=== PATIENT | male | born 1960 | race Caucasian/White ===

== ENCOUNTER 2017-07-21 03:33 | Inpatient (IN) | payer BC ==
[2017-07-21] MEDS ORDERED: NITROGLYCERIN OINT 1 INCH/GM PACKET TOPICAL STA (04:07)
[2017-07-21] MEDS ORDERED: MORPHINE SULFATE 4 MG/0.8 ML SYRINGE (INJ) IV STA (04:07)
[2017-07-21] MEDS ORDERED: SODIUM CHLORIDE 0.9% 1,000 ML IV STA (04:07)
[2017-07-21] MEDS ORDERED: ONDANSETRON 4 MG/2 ML VIAL IVP STA (04:07)
[2017-07-21] MEDS ORDERED: ENALAPRILAT 1.25 MG/ML 1 ML VIAL IVP STA (04:08)
[2017-07-21 04:42] LABS: Basophils % (A) 1 %; Eosinophils # (A) 0.1 k/uL (0-0.7); Eosinophils % (A) 3 %; HCT 37.7 % (39.0-53.0); Lymphocytes # (A) 1.3 k/uL (1.0-4.8); Lymphocytes % (A) 26 %; MCV 82.2 fL (80.0-100.0); Mean Platelet Volume 6.6; Monocytes # (A) 0.5 k/uL (0-1.0); Monocytes % (A) 10 %; Neutrophils % (A) 59 %; Platelet Count 210 k/uL (150-450); RBC 4.58 m/uL (4.30-5.90); RDW 13.3 % (11.5-15.5); WBC 5.1 k/uL (3.8-10.6)
[2017-07-21 04:48] LABS: HGB 13.2 gm/dL (13.0-17.5); MCH 28.7 pg (25.0-35.0)
[2017-07-21 05:16] LABS: Blood Urea Nitrogen 27 mg/dL (9-20); Calcium 9.4 mg/dL (8.4-10.2); Carbon Dioxide 22 mmol/L (22-30); Glucose 116 mg/dL (74-99)
[2017-07-21 05:17] LABS: Albumin 3.9 g/dL (3.5-5.0); Anion Gap 13 mmol/L; Chloride 106 mmol/L (98-107); Sodium 141 mmol/L (137-145); Total Bilirubin 0.3 mg/dL (0.2-1.3); Total Protein 6.3 g/dL (6.3-8.2)
[2017-07-21 05:18] LABS: ALT 27 U/L (21-72); AST 27 U/L (17-59); Alkaline Phosphatase 66 U/L (38-126); Creatine Kinase MB 2.4 ng/mL (0.0-2.4); Magnesium 1.8 mg/dL (1.6-2.3); Troponin I <0.012 ng/mL (0.000-0.034)
[2017-07-21 05:19] LABS: Creatine Kinase 85 U/L (55-170)
--- NOTE | 2017-07-21 05:21 | XR ---
EXAM: XR Chest, 2 Views CLINICAL HISTORY: Hypertension TECHNIQUE: Frontal and lateral views of the chest. COMPARISON: None. FINDINGS: Limitations: Poor inspiratory effort is seen, which limits evaluation. Lungs: Mild bibasilar atelectasis and/or infiltrates. Mild peribronchial cuffing, which may represent mild pulmonary edema versus infectious/inflammatory airways disease. Pleural space: Unremarkable. No pneumothorax. Heart: Unremarkable. No cardiomegaly. Mediastinum: Unremarkable. Bones/joints: Unremarkable. IMPRESSION: 1. Mild bibasilar atelectasis and/or infiltrates. 2. Mild peribronchial cuffing, which may represent mild pulmonary edema versus infectious/inflammatory airways disease.
--- NOTE | 2017-07-21 05:30 | ED ---
General Adult HPI - General Chief complaint: Recheck/Abnormal Lab/Rx Stated complaint: hypertension Time Seen by Provider: 07/21/17 03:51 Source: patient Mode of arrival: ambulatory Limitations: no limitations - History of Present Illness Initial comments: 56 years old gentleman has a history of hypertension he is on now lisinopril and metoprolol, this morning he noticed blood pressure was quite high he was to 215 systolic he also complained about chest pain and the chest pressure he said his return home off-and-on even he has a chest pressure and now he denies any pain with a deep breaths she denies any fever no chills he is not coughing up any phlegm. He denies any headaches no confusion no blurred vision no slurred speech no symptoms of TIA or CVA - Related Data Allergies Allergy/AdvReac Type Severity Reaction Status Date / Time No Known Allergies Allergy Verified 07/21/17 03:41 Review of Systems ROS Statement: Those systems with pertinent positive or pertinent negative responses have been documented in the HPI. ROS Other: All systems not noted in ROS Statement are negative. Past Medical History Past Medical History: Hypertension History of Any Multi-Drug Resistant Organisms: None Reported Past Surgical History: No Surgical Hx Reported Past Psychological History: No Psychological Hx Reported Smoking Status: Current some day smoker Past Alcohol Use History: None Reported Past Drug Use History: None Reported General Exam - General Exam Comments Initial Comments: General: The patient is awake and alert, in no distress, and does not appear acutely ill. Skin: Skin is warm and dry and no rashes or lesions are noted. Eye: Pupils are equal, round and reactive to light, extra-ocular movements are intact; there is normal conjunctiva bilaterally. Ears, nose, mouth and throat: There are moist mucous membranes and no oral lesions. Neck: The neck is supple, there is no tenderness or JVD. Cardiovascular: There is a regular rate and rhythm. No murmur, rub or gallop is appreciated. Respiratory: To auscultation bilateral, no wheezing no rhonchi no distress respiratory parra noticed Gastrointestinal: Soft, non-distended, non-tender abdomen without masses or organomegaly noted. There is no rebound or guarding present. Bowel sounds are unremarkable. Back: There is no tenderness to palpation in the midline. There is no obvious deformity. Musculoskeletal: Normal ROM, no tenderness, There is no pedal edema. There is no calf tenderness or swelling. No cords were appreciated. Neurological: CN II-XII intact, Cranial nerves III through XII are intact. There are no obvious motor or sensory deficits. Coordination appears grossly intact. Speech is normal. Psychiatric: Cooperative, appropriate mood & affect, normal judgment. Limitations: no limitations Course Vital Signs 07/21/17 07/21/17 07/21/17 03:36 03:52 04:58 Temperature 99.3 F Pulse Rate 71 66 60 Respiratory 16 18 18 Rate Blood Pressure 215/100 177/79 146/79 O2 Sat by Pulse 98 99 100 Oximetry Sinus reassessed at 537 at about some chest pressure this point though he is chest x-rays unremarkable his troponin is normal and EKG didn't show any STEMI plantar admitted him Dr. Ton Marcos and now cardiology consult blood pressure is quite nicely a blood pressure down to 1:30 systolic EKG Findings - EKG Comments: EKG Findings:: Him EKG is normal sinus rhythm ventricular medical rate is 61 [place] interval is 168 QRS duration is 116 QT/QTC 392/394 review of this EKG does not reveal any ST elevation or ST depression noticed right bundle branch block Medical Decision Making - Lab Data Result diagrams: 07/21/17 04:15 07/21/17 04:15 Lab Results 07/21/17 07/21/17 07/21/17 Range/Units 04:15 04:15 04:15 WBC 5.1 (3.8-10.6) k/uL RBC 4.58 (4.30-5.90) m/uL Hgb 13.2 (13.0-17.5) gm/dL Hct 37.7 L (39.0-53.0) % MCV 82.2 (80.0-100.0) fL MCH 28.7 (25.0-35.0) pg MCHC 38.0 H (31.0-37.0) g/dL RDW 13.3 (11.5-15.5) % Plt Count 210 (150-450) k/uL Neutrophils % 59 % Lymphocytes % 26 % Monocytes % 10 % Eosinophils % 3 % Basophils % 1 % Neutrophils # 3.0 (1.3-7.7) k/uL Lymphocytes # 1.3 (1.0-4.8) k/uL Monocytes # 0.5 (0-1.0) k/uL Eosinophils # 0.1 (0-0.7) k/uL Basophils # 0.0 (0-0.2) k/uL Sodium 141 (137-145) mmol/L Potassium 4.0 (3.5-5.1) mmol/L Chloride 106 (98-107) mmol/L Carbon Dioxide 22 (22-30) mmol/L Anion Gap 13 mmol/L BUN 27 H (9-20) mg/dL Creatinine 0.80 (0.66-1.25) mg/dL Est GFR (CKD-EPI)AfAm >90 (>60 ml/min/1.73 sqM) Est GFR (CKD-EPI)NonAf >90 (>60 ml/min/1.73 sqM) Glucose 116 H (74-99) mg/dL Calcium 9.4 (8.4-10.2) mg/dL Magnesium 1.8 (1.6-2.3) mg/dL Total Bilirubin 0.3 (0.2-1.3) mg/dL AST 27 (17-59) U/L ALT 27 (21-72) U/L Alkaline Phosphatase 66 (38-126) U/L Total Creatine Kinase 85 (55-170) U/L CK-MB (CK-2) 2.4 (0.0-2.4) ng/mL CK-MB (CK-2) Rel Index 2.8 Troponin I <0.012 (0.000-0.034) ng/mL Total Protein 6.3 (6.3-8.2) g/dL Albumin 3.9 (3.5-5.0) g/dL Critical Care Time Total Critical Care Time: 45 Critical Care Time: Patient came in with the pressure off at 200 [id number] systolic he had a chest pressure patient was evaluated from cardiac standpoint is EKG is unremarkable his troponin is normal but he continued to have a chest pressure his blood pressure has come down he was given some Vasotec IV along with some morphine and nitro considering he is over 50 is being BMI is a 37.3 and blood pressure is quite elevated and he continued to have asked pressure I plan to admit him and now my proceed to heparinize him and will be treated as acute coronary syndrome he cardiology be consulted. Admitted to Dr. Ton Marcos's service and discussed that with the Dr. Ton Marcos he agrees with the Disposition Clinical Impression: Hypertension, Chest pain Disposition: ADMITTED IP TO THIS HOSP Condition: Good Referrals: Arminda Last MD [Primary Care Provider] - 1-2 days
[2017-07-21] MEDS ORDERED: HEPARIN SODIUM,PORCINE 5,000 UNIT/ML 1 ML VIAL IV ONE (05:42)
[2017-07-21] MEDS ORDERED: NITROGLYCERIN OINT 1 INCH/GM PACKET TOPICAL SCH (06:00)
[2017-07-21] MEDS: HEPARIN SOD,PORK IN 0.45% NACL 25,000 UNIT in 0.45% NACL 1 500ML.BAG IV SCH (06:20)
--- NOTE | 2017-07-21 07:32 | HP ---
HISTORY AND PHYSICAL CHIEF COMPLAINT: 56-year-old white male with hypertension. HISTORY OF PRESENT ILLNESS: A 56-year-old white gentleman hypertension, on lisinopril and metoprolol. Blood pressure quite high 250 systolic. He came to the hospital due to significant chest pressure and shortness of breath. He had no confusion or blurry vision, symptoms of a CVA or TIA. ALLERGIES: No known drug allergies. REVIEW OF SYSTEMS: Fourteen point review of systems negative except for mentioned in HPI. PAST MEDICAL HISTORY: Hypertension. SOCIAL HISTORY: Current everyday smoker. No alcohol. No street drugs. PHYSICAL EXAM: Temp 98.3, pulse 71, blood pressure was 215/100 on admission, currently is 146/79. CARDIOVASCULAR: S1, S2. LUNGS: Clear. GI soft. Hematology negative Homans. Psych fair mood and affect. NEUROLOGIC: Alert and oriented x3. Psych fair mood and affect. Vascular: Normal dorsalis pedis posterior radial pulse. Ophthalmologic: Pupils equal, round, react to light and accommodation. Otherwise 14-point review of systems is negative. EKG shows sinus rhythm. EKG did not reveal any ST depression, right bundle branch block. Hemoglobin 13.2, BUN 27, creatinine 0.80. ASSESSMENT AND PLAN: 1. Hypertension acceleration. 2. Atypical chest pressure, rule out myocardial infarction. 3. He has morbid obesity. 4. Admitted with acute coronary syndrome. 5. Cardiology is on consult. 6. Hypertension will be controlled. 7. Aspirin and cholesterol pill. Beta blockers will all be given. MMODL / IJN: [id number] /
[2017-07-21] MEDS: LISINOPRIL 10 MG TAB PO SCH (08:50)
[2017-07-21] MEDS: MORPHINE SULFATE 4 MG/0.8 ML SYRINGE (INJ) IV PRN ×2 (10:41→18:01)
[2017-07-21] MEDS ORDERED: ASPIRIN 325 MG TAB PO SCH (11:20)
[2017-07-21] MEDS ORDERED: METOPROLOL TARTRATE 12.5 MG TAB PO SCH (11:30)
[2017-07-21 11:44] LABS: Creatine Kinase 63 U/L (55-170)
[2017-07-21 11:56] LABS: Troponin I <0.012 ng/mL (0.000-0.034)
[2017-07-21 12:10] LABS: Creatine Kinase MB 2.6 ng/mL (0.0-2.4)
--- NOTE | 2017-07-21 12:43 | CONS ---
CONSULTATION Mr. Trinh is a 56-year-old male with a history of hypertension who presented because he felt his blood pressure was too high. He was feeling edgy. He had some discomfort in the chest, although not exertional in pattern. He checked his blood pressure and it was in the 200s. At home, his blood pressure has been elevated recently. He is not very active physically, but has no exertional chest pain. He has no significant dyspnea on exertion. He has no dizziness or palpitation. No syncope. No clear PND or orthopnea. He had no knowledge of edema. He has symptoms off apnea and snoring that has not been checked for obstructive sleep apnea. He had a stress test at [facility] done as an outpatient about 1 month ago and that was unremarkable according to him. His coronary risk factors are remarkable for hypertension. He is nondiabetic. His lipid profile has been stable according to him. He smokes cigars occasionally. He has no family history of premature coronary artery disease. MEDICATION: At home include Zestril 20 mg twice a day, metoprolol succinate 50 mg twice a day. REVIEW OF SYSTEMS: RESPIRATORY SYSTEM. No recent wheezing. No cough. No history of documented obstructive lung disease. GI SYSTEM: No recent GI bleeding or peptic ulcer disease. SYSTEM: No dysuria or hematuria. NERVOUS SYSTEM: No history of stroke or seizure. PHYSICAL EXAMINATION: A 56-year-old male, alert, oriented, in no apparent distress. Blood pressure 127/60 with a heart rate in the 60s. HEAD: Normocephalic. EYES: Sclerae nonicteric. NECK: Good upstroke. No bruit. No jugular venous distention. LUNGS: Clear to auscultation. HEART: Regular rate and rhythm, S1, S2. No S3, plus S4. No rub. ABDOMEN: Soft, obese, nontender. Positive bowel sounds no megaly. EXTREMITIES: Trace to 1+ edema bilaterally. LAB DATA: Revealed troponin less than 0.012. BUN and creatinine 27 and 0.8, potassium 4.0, hemoglobin is 13.2. EKG revealed a sinus mechanism with normal axis, intraventricular conduction delay, of the right bundle branch block type with borderline QRS. Chest x-ray showed questionable congestion. IMPRESSION: 1. Hypertension, elevated at home under good control now. Reviewing his blood pressure home readings has been elevated. 2. Symptoms of chest pain has some typical feature for ischemic heart disease. Patient has underwent a stress test recently that according to him was unremarkable. 3. Probable obstructive sleep apnea. RECOMMENDATION: I will restart him on a beta juanita in since he was on Toprol-XL, I will continue on the DAVID inhibitor and add hydrochlorothiazide. I will obtain echocardiogram with Doppler. Patient would require a sleep study as an outpatient. I will try to obtain the results of his prior testing including the stress test and depending on that, further recommendation will be made. Thank you for this consult. We will follow with you. MMKALEBL / IJN: [id number] /
--- NOTE | 2017-07-21 15:02 | P.HPIM ---
History of Present Illness H&P Date: 07/21/17 Chief Complaint: Hypertension, pain and chest arms shoulders and neck This is a 56-year-old male patient of Dr. Last with past medical history of hypertension, high triglycerides, gastroesophageal reflux disease. Patient and gives history that for the past year he has had problems with hypertension. Onset in March of pains in his arms shoulders and neck bothering him for a while. He had a Doppler done and blood pressure medications were added. He has been monitoring his blood pressure for the past month and has been up and down. He states the pain is a sharpness and bilateral arms and his upper chest. He has full range of motion to his neck. He denies any shortness of breath and denies any pain with exercise. He denies any back pain area and no headache or blurred vision. He denies any increased stress at home or with work. No nausea vomiting or diarrhea. No tenderness to his chest wall or shoulders. He denies having any history of coronary artery disease, heart failure, irregular heartbeat, stroke diabetes. He states that he woke up at 2 in the morning with a blood pressure of 215/115. He states he may have felt a little dizzy at that time and also had tingling in his feet. He was having increased discomfort in his arms shoulders and chest and he came into [facility] emergency center for evaluation. Initially his blood pressure was 215/100. Chest x-ray showed mild bibasilar atelectasis or infiltrate with mild pulmonary edema. White count was normal, hemoglobin 13.2, electrolytes were within normal limits. Creatinine 0.8. Troponin has been negative. IV Vasotec, Nitro-Bid ointment which improved his blood pressure. Patient is in the ER, awaiting selective care bed. Cardiology is on consult. Echocardiogram and BNP have been ordered. Review of Systems All systems: negative Constitutional: Reports fatigue, Reports weakness, Denies chills, Denies fever Eyes: denies blurred vision, denies pain Ears, nose, mouth and throat: Reports vertigo, Denies headache, Denies sore throat Cardiovascular: Reports chest pain, Denies decreased exercise tolerance, Denies dyspnea on exertion, Denies edema, Denies leg edema, Denies lightheadedness, Denies shortness of breath, Denies syncope Respiratory: Denies cough, Denies cough with sputum, Denies dyspnea, Denies excessive sputum, Denies hemoptysis, Denies home oxygen, Denies wheezing Gastrointestinal: Denies abdominal pain, Denies diarrhea, Denies nausea, Denies vomiting Genitourinary: Denies dysuria Musculoskeletal: Denies myalgias Integumentary: Denies pruritus, Denies rash Neurological: Denies numbness, Denies weakness Psychiatric: Denies anxiety, Denies depression Endocrine: Denies fatigue, Denies weight change Past Medical History Past Medical History: GERD/Reflux, Hypertension Additional Past Medical History / Comment(s): High triglycerides History of Any Multi-Drug Resistant Organisms: None Reported Past Surgical History: No Surgical Hx Reported Additional Past Anesthesia/Blood Transfusion Reaction / Comment(s): Pt has never had anesthesia Smoking Status: Light tobacco smoker Additional Past Alcohol Use History / Comment(s): Patient smokes a cigar occasionally. 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 He lives at home with his . - Past Family History Father Family Medical History: CVA/TIA, Dementia Additional Family Medical History / Comment(s): Father at 87yrs from CVA. Mother Family Medical History: CVA/TIA Additional Family Medical History / Comment(s): Mother had several small strokes and dementia. She at the age of 89yrs. Sister(s) Additional Family Medical History / Comment(s): Patient has one sister that from lung cancer. She was a nonsmoker. Patient is brothers with no major medical problems. Patient has 2 children with no major medical problems. Medications and Allergies Home Medications Medication Instructions Recorded Confirmed Type Lisinopril [Zestril] 20 mg PO BID 07/21/17 07/21/17 History Metoprolol Succinate (ER) [Toprol 50 mg PO DAILY 07/21/17 07/21/17 History Xl] Allergies Allergy/AdvReac Type Severity Reaction Status Date / Time No Known Allergies Allergy Verified 07/21/17 07:58 Physical Exam Vitals: Vital Signs Temp Pulse Pulse Resp BP BP Pulse Ox 07/21/17 14:08 97.8 F 60 16 115/67 98 07/21/17 13:32 98.0 F 53 L 18 138/87 98 07/21/17 11:00 57 L 18 126/72 97 07/21/17 08:50 64 18 111/80 98 07/21/17 08:00 69 18 127/69 99 07/21/17 06:22 56 L 18 121/73 98 07/21/17 05:46 97.9 F 60 18 133/69 97 07/21/17 04:58 60 18 146/79 100 07/21/17 03:52 66 18 177/79 99 07/21/17 03:36 99.3 F 71 16 215/100 98 Intake and Output 07/20/17 07/21/17 07/21/17 22:59 06:59 14:59 Other: Weight 117.934 kg Gen: This is a 56-year-old male patient. He is on this stretcher and ear appears to be comfortable. No respiratory distress is noted. HEENT: Head is atraumatic, normocephalic. Pupils equal, round. Sclerae is anicteric. NECK: Supple. No JVD. No lymphadenopathy. No thyromegaly. LUNGS: Clear to auscultation. No wheezes or rhonchi. No intercostal retractions. HEART: Regular rate and rhythm. No murmur. ABDOMEN: Soft. Bowel sounds are present. No masses. No tenderness. EXTREMITIES: Trace bilateral pedal edema. No calf tenderness. NEUROLOGICAL: Patient is awake, alert and oriented x3. Cranial nerves 2 through 12 are grossly intact. Results CBC & Chem 7: 07/21/17 04:15 07/21/17 04:15 Labs: Abnormal Lab Results - Last 24 Hours (Table) 07/21/17 07/21/17 07/21/17 Range/Units 04:15 04:15 10:58 Hct 37.7 L (39.0-53.0) % MCHC 38.0 H (31.0-37.0) g/dL APTT (22.0-30.0) sec BUN 27 H (9-20) mg/dL Glucose 116 H (74-99) mg/dL CK-MB (CK-2) 2.6 H* (0.0-2.4) ng/mL 07/21/17 Range/Units 12:13 Hct (39.0-53.0) % MCHC (31.0-37.0) g/dL APTT 33.7 H (22.0-30.0) sec BUN (9-20) mg/dL Glucose (74-99) mg/dL CK-MB (CK-2) (0.0-2.4) ng/mL Thrombosis Risk Factor Assmnt - DVT/VTE Prophylaxis DVT/VTE Prophylaxis: Pharmacologic Prophylaxis ordered - Choose All That Apply Any of the Below Risk Factors Present?: Yes Each Factor Represents 1 point: Age 41-60 years, Obesity (BMI >25) Other Risk Factors: No Other congenital or acquired thrombophilia - If yes, enter type in comment: No Thrombosis Risk Factor Assessment Total Risk Factor Score: 2 Thrombosis Risk Factor Assessment Level: Low Risk Assessment and Plan Plan: 1. Uncontrolled hypertension, improved. Continue Lopressor 25 mg twice daily, lisinopril 10 mg daily and cardiology has added in hydrochlorothiazide 25 mg daily 2. Chest pain with bilateral arm and neck involvement. Cardiology consult is appreciated. He had a recent stress test which will be obtained. Patient is on a heparin drip, serial troponins, echocardiogram. Continue aspirin, Lipitor , Lopressor. 3. Possible obstructive sleep apnea. Patient would benefit from outpatient sleep study. 4. Gastroesophageal reflux disease and gastrointestinal prophylaxis. Pepcid. 5. DVT prophylaxis. Patient is on heparin drip. Patient will be admitted to the hospital for a minimum of 2 night stay. Discharge plan: Return home Impression and plan of care have been directed as dictated by the signing physician. May Caldwell nurse practitioner acting as scribe for signing physician.
[2017-07-21] MEDS: HYDROCHLOROTHIAZIDE 25 MG TAB PO SCH (15:39)
[2017-07-21] MEDS: ACETAMINOPHEN TAB 325 MG TAB PO PRN ×2 (15:45→20:01)
[2017-07-21] MEDS: ATORVASTATIN 40 MG TAB PO SCH (20:06)
[2017-07-21] MEDS: METOPROLOL TARTRATE 25 MG TAB PO SCH (20:06)
[2017-07-21] MEDS: HEPARIN SODIUM,PORCINE 5,000 UNIT/ML 1 ML VIAL IV PRN (20:07)
[2017-07-21] MEDS ORDERED: MORPHINE SULFATE 4 MG/0.8 ML SYRINGE (INJ) IVP STA (20:43)
[2017-07-21] MEDS ORDERED: traMADol 50 MG TAB PO PRN (21:43)
[2017-07-22] MEDS ORDERED: traMADol 50 MG TAB PO SCH
[2017-07-22 00:24] LABS: Appearance,Urine Clear (Clear); Bilirubin,Urine Negative (Negative); Blood,Urine Negative (Negative); Color,Urine Light Yellow; Glucose,Urine (UA) Negative (Negative); Ketones,Urine Negative (Negative); Leukocyte Esterase,Urine Negative (Negative); Nitrite,Urine Negative (Negative); Protein,Urine Negative (Negative); Specific Gravity,Urine 1.009 (1.001-1.035); Urobilinogen,Urine <2.0 mg/dL (<2.0)
[2017-07-22 00:39] VITALS: RESP 18
[2017-07-22] MEDS ORDERED: ACETAMINOPHEN TAB 325 MG TAB PO PRN (02:00)
[2017-07-22 02:46] LABS: Anion Gap 11 mmol/L; Blood Urea Nitrogen 18 mg/dL (9-20); Carbon Dioxide 24 mmol/L (22-30); Chloride 104 mmol/L (98-107); Cholesterol 134 mg/dL (<200); Glucose 118 mg/dL (74-99); Sodium 139 mmol/L (137-145); Triglycerides 234 mg/dL (<150)
[2017-07-22 02:58] LABS: Calcium 9.1 mg/dL (8.4-10.2); HDL Cholesterol 35 mg/dL (40-60); LDL Cholesterol,Calculated 52 mg/dL (0-99); Potassium 3.8 mmol/L (3.5-5.1)
[2017-07-22] MEDS: HEPARIN SODIUM,PORCINE 5,000 UNIT/ML 1 ML VIAL IV PRN (03:51)
[2017-07-22] MEDS: HEPARIN SOD,PORK IN 0.45% NACL 25,000 UNIT in 0.45% NACL 1 500ML.BAG IV SCH (05:42)
[2017-07-22] MEDS: ASPIRIN 81 MG PO SCH (07:58)
[2017-07-22] MEDS: LISINOPRIL 10 MG TAB PO SCH (07:58)
[2017-07-22] MEDS: FAMOTIDINE 20 MG TAB PO SCH (07:58)
[2017-07-22] MEDS: HYDROCHLOROTHIAZIDE 25 MG TAB PO SCH (07:58)
[2017-07-22] MEDS: METOPROLOL TARTRATE 25 MG TAB PO SCH ×2 (07:58→20:43)
--- NOTE | 2017-07-22 08:53 | ECHOF ---
Referral Reason:lvf MEASUREMENTS -------- HEIGHT: 180.3 cm WEIGHT: 117.9 kg BP: 111/80 IVSd: 1.2 cm (0.6 - 1.1) LVIDd: 4.3 cm (3.9 - 5.3) LVPWd: 1.2 cm (0.6 - 1.1) IVSs: 1.2 cm LVIDs: 2.7 cm LVPWs: 1.7 cm Ao Diam: 3.4 cm (2.0 - 3.7) AV Cusp: 2.3 cm (1.5 - 2.6) LA Diam: 2.6 cm (2.7 - 3.8) MV EXCURSION: 14.924 mm (> 18.000) MV EF SLOPE: 104 mm/s (70 - 150) EPSS: 0.4 cm MV E Michael: 0.81 m/s MV DecT: 221 ms MV A Michael: 0.57 m/s MV E/A Ratio: 1.43 RAP: 5.00 mmHg RVSP: 11.86 mmHg FINDINGS -------- Sinus rhythm. This was a technically difficult study with suboptimal views. The left ventricular size is normal. There is mild concentric left ventricular hypertrophy. Overa ll left ventricular systolic function is normal with, an EF between 55 - 60 %. The right ventricle is normal in size and function. The left atrium is normal in size. The right atrium is normal in size. Lumason used The aortic valve is trileaflet, and appears structurally normal. No aortic stenosis or regurgitation. There is trace mitral regurgitation. Trace tricuspid regurgitation present. The right ventricular systolic pressure, as measured by Dopp ler, is 11.86mmHg. Pulmonic valve appears structurally normal. The aortic root size is normal. Normal inferior vena cava with normal inspiratory collapse consistent with estimated right atrial pre ssure of 5 mmHg. The pericardium is normal. CONCLUSIONS -------- 1. Sinus rhythm. 2. This was a technically difficult study with suboptimal views. 3. The left ventricular size is normal. 4. There is mild concentric left ventricular hypertrophy. 5. Overall left ventricular systolic function is normal with, an EF between 55 - 60 %. 6. The right ventricle is normal in size and function. 7. The left atrium is normal in size. 8. The right atrium is normal in size. 9. Lumason used 10. The aortic valve is trileaflet, and appears structurally normal. No aortic stenosis or regurgitat ion. 11. There is trace mitral regurgitation. 12. Trace tricuspid regurgitation present. 13. The right ventricular systolic pressure, as measured by Doppler, is 11.86mmHg. 14. Pulmonic valve appears structurally normal. 15. The aortic root size is normal. 16. Normal inferior vena cava with normal inspiratory collapse consistent with estimated right atrial pressure of 5 mmHg. 17. The pericardium is normal. [employer] CASER: Trisha Hess RDCS
[2017-07-22] MEDS ORDERED: ASPIRIN 325 MG TAB PO SCH (09:00)
--- NOTE | 2017-07-22 11:14 | P.PN ---
Subjective Progress Note Date: 07/22/17 This is a 56-year-old male patient of Dr. Last with past medical history of hypertension, high triglycerides, gastroesophageal reflux disease. Patient and gives history that for the past year he has had problems with hypertension. Onset in March of pains in his arms shoulders and neck bothering him for a while. He had a Doppler done and blood pressure medications were added. He has been monitoring his blood pressure for the past month and has been up and down. He states the pain is a sharpness and bilateral arms and his upper chest. He has full range of motion to his neck. He denies any shortness of breath and denies any pain with exercise. He denies any back pain area and no headache or blurred vision. He denies any increased stress at home or with work. No nausea vomiting or diarrhea. No tenderness to his chest wall or shoulders. He denies having any history of coronary artery disease, heart failure, irregular heartbeat, stroke diabetes. He states that he woke up at 2 in the morning with a blood pressure of 215/115. He states he may have felt a little dizzy at that time and also had tingling in his feet. He was having increased discomfort in his arms shoulders and chest and he came into [facility] emergency center for evaluation. Initially his blood pressure was 215/100. Chest x-ray showed mild bibasilar atelectasis or infiltrate with mild pulmonary edema. White count was normal, hemoglobin 13.2, electrolytes were within normal limits. Creatinine 0.8. Troponin has been negative. IV Vasotec, Nitro-Bid ointment which improved his blood pressure. 07/22: Patient is feeling better today he denies any chest pain, he denies any more neck pain or shoulder pain he stated that the pain got better after the nitroglycerin was removed, his blood pressure is better today, we will discontinue heparin drip, we will keep the patient the hospital for another 24 hours if the blood pressure is well controlled he can be discharged home tomorrow morning. Objective - Vital Signs Vital signs: Vital Signs Temp 98.9 F 07/22/17 04:00 Pulse 76 07/22/17 04:00 Resp 18 07/22/17 04:00 BP 119/61 07/22/17 04:00 Pulse Ox 95 07/22/17 04:00 Intake & Output 07/21/17 07/22/17 07/22/17 18:59 06:59 18:59 Intake Total 240 500.000 Output Total 300 Balance 240 200.000 Weight 117.7 kg Intake: Intake, IV Titration 500.000 Amount Heparin Sod,Pork in 0.45% 500.000 NaCl 25,000 unit In 0.45 % NaCl 1 500ml.bag @ 8.4 UNITS/KG/HR 19.81 mls/hr IV .Q24H RACHEAL Rx#: [id number] Oral 240 Output: Urine 300 Other: # Voids 1 - Constitutional General appearance: Present: mild distress, obese - EENT Eyes: Present: anicteric sclerae, EOMI, PERRLA, normal appearance. Absent: ptosis, scleral icterus ENT: Present: hearing grossly normal, NA/AT, normal oropharynx Ears: bilateral: normal - Neck Neck: Present: normal ROM. Absent: lymphadenopathy, rigidity, stridor, thyromegaly Carotids: bilateral: upstroke normal Thyroid: bilateral: normal size - Respiratory Respiratory: bilateral: diminished, negative: dullness, rales, rhonchi, wheezing , prolonged expiration - Cardiovascular Rhythm: regular Heart sounds: normal: S1, S2 Abnormal Heart Sounds: Present: systolic murmur - Gastrointestinal General gastrointestinal: Present: normal bowel sounds, soft. Absent: splenomegaly, tenderness, umbilical hernia - Integumentary Integumentary: Present: normal, normal turgor - Neurologic Neurologic: Present: CNII-XII intact - Musculoskeletal Musculoskeletal: Present: strength equal bilaterally - Psychiatric Psychiatric: Present: A&O x's 3, appropriate affect, intact judgment & insight - Labs CBC & Chem 7: 07/21/17 04:15 07/22/17 02:25 Labs: Abnormal Lab Results - Last 24 Hours (Table) 07/21/17 07/21/17 07/22/17 Range/Units 10:58 12:13 02:25 APTT 33.7 H (22.0-30.0) sec Glucose 118 H (74-99) mg/dL CK-MB (CK-2) 2.6 H* (0.0-2.4) ng/mL Triglycerides 234 H (<150) mg/dL HDL Cholesterol 35 L (40-60) mg/dL 07/22/17 Range/Units 02:25 APTT 45.2 H (22.0-30.0) sec Glucose (74-99) mg/dL CK-MB (CK-2) (0.0-2.4) ng/mL Triglycerides (<150) mg/dL HDL Cholesterol (40-60) mg/dL Assessment and Plan Assessment: Assessment and Plan Plan: 1. Uncontrolled hypertension, improved. Continue Lopressor 25 mg twice daily, lisinopril 10 mg daily and cardiology has added in hydrochlorothiazide 25 mg daily 2. Chest pain with bilateral arm and neck involvement. Noncardiac in origin, patient will need to go for a cervical spine x-ray as an outpatient, he will need to go for a sleep study as an outpatient as well. 3. Possible obstructive sleep apnea. Patient would benefit from outpatient sleep study. 4. Gastroesophageal reflux disease and gastrointestinal prophylaxis. Pepcid. 5. DVT prophylaxis. Patient is on heparin drip. 6. Patient can be discharged home in the next 24 hours if okay with cardiology.
[2017-07-22] MEDS: amLODIPine 5 MG TAB PO SCH (14:19)
--- NOTE | 2017-07-22 20:27 | PN ---
PROGRESS NOTE This patient was admitted with uncontrolled hypertension. He is feeling well. He denies any headaches or dizziness or lightheadedness. Blood pressure is 163/84 mmHg. The patient is afebrile. First and second heart sounds are normal. Lungs are clinically clear to auscultation and percussion. Patient's troponins are negative. The patient can be discharged home Amlodipine 5 mg daily. He in addition to the lisinopril. MMODL / IJN: [id number] /
[2017-07-22] MEDS: ATORVASTATIN 40 MG TAB PO SCH (20:43)
[2017-07-23 05:48] LABS: Basophils % (A) 0 %; Eosinophils # (A) 0.2 k/uL (0-0.7); Eosinophils % (A) 3 %; HCT 40.8 % (39.0-53.0); Lymphocytes # (A) 1.8 k/uL (1.0-4.8); Lymphocytes % (A) 26 %; MCH 28.7 pg (25.0-35.0); MCHC 34.3 g/dL (31.0-37.0); MCV 83.6 fL (80.0-100.0); Mean Platelet Volume 6.4; Monocytes # (A) 0.6 k/uL (0-1.0); Monocytes % (A) 9 %; Neutrophils % (A) 59 %; Platelet Count 207 k/uL (150-450); RBC 4.89 m/uL (4.30-5.90); RDW 13.2 % (11.5-15.5); WBC 6.8 k/uL (3.8-10.6)
[2017-07-23 05:59] LABS: ALT 27 U/L (21-72); AST 23 U/L (17-59); Alkaline Phosphatase 61 U/L (38-126); Anion Gap 14 mmol/L; Blood Urea Nitrogen 18 mg/dL (9-20); Calcium 9.4 mg/dL (8.4-10.2); Carbon Dioxide 27 mmol/L (22-30); Chloride 102 mmol/L (98-107); Glucose 99 mg/dL (74-99); Potassium 3.9 mmol/L (3.5-5.1); Sodium 143 mmol/L (137-145); Total Bilirubin 0.8 mg/dL (0.2-1.3); Total Protein 6.5 g/dL (6.3-8.2)
[2017-07-23] MEDS: FAMOTIDINE 20 MG TAB PO SCH (08:35)
[2017-07-23] MEDS: ASPIRIN 81 MG PO SCH (08:35)
[2017-07-23] MEDS: amLODIPine 5 MG TAB PO SCH (08:35)
[2017-07-23] MEDS: METOPROLOL TARTRATE 25 MG TAB PO SCH (08:36)
[2017-07-23] MEDS: LISINOPRIL 10 MG TAB PO SCH (08:36)
[2017-07-23] MEDS: HYDROCHLOROTHIAZIDE 25 MG TAB PO SCH (08:36)
--- NOTE | 2017-07-23 09:31 | P.DS ---
Providers Date of admission: 07/21/17 05:41 Attending physician: Darwin Caicedo MD Consults: 07/21/17 05:42 Consult Physician Urgent Consulting Provider: Yvrose Houston Consult Reason/Comments: Chest pain, hypertension, mild pulmonary edema Do you want consulting provider notified?: Yes Primary care physician: Arminda Last [place] Hospital Course: This is a 56-year-old male patient of Dr. Last with past medical history of hypertension, high triglycerides, gastroesophageal reflux disease. Patient and gives history that for the past year he has had problems with hypertension. Onset in March of pains in his arms shoulders and neck bothering him for a while. He had a Doppler done and blood pressure medications were added. He has been monitoring his blood pressure for the past month and has been up and down. He states the pain is a sharpness and bilateral arms and his upper chest. He has full range of motion to his neck. He denies any shortness of breath and denies any pain with exercise. He denies any back pain area and no headache or blurred vision. He denies any increased stress at home or with work. No nausea vomiting or diarrhea. No tenderness to his chest wall or shoulders. He denies having any history of coronary artery disease, heart failure, irregular heartbeat, stroke diabetes. He states that he woke up at 2 in the morning with a blood pressure of 215/115. He states he may have felt a little dizzy at that time and also had tingling in his feet. He was having increased discomfort in his arms shoulders and chest and he came into [facility] emergency center for evaluation. Initially his blood pressure was 215/100. Chest x-ray showed mild bibasilar atelectasis or infiltrate with mild pulmonary edema. White count was normal, hemoglobin 13.2, electrolytes were within normal limits. Creatinine 0.8. Troponin has been negative. IV Vasotec, Nitro-Bid ointment which improved his blood pressure. 07/22: Patient is feeling better today he denies any chest pain, he denies any more neck pain or shoulder pain he stated that the pain got better after the nitroglycerin was removed, his blood pressure is better today, we will discontinue heparin drip, we will keep the patient the hospital for another 24 hours if the blood pressure is well controlled he can be discharged home tomorrow morning. Discharge diagnoses: 1. Uncontrolled hypertension, improved. 2. Chest pain with bilateral arm and neck involvement. Noncardiac in origin, 3. Possible obstructive sleep apnea. Patient would benefit from outpatient sleep study. Patient Condition at Discharge: Good Plan - Discharge Summary Discharge Rx Participant: No New Discharge Prescriptions: New amLODIPine [Norvasc] 5 mg PO DAILY #30 tab Aspirin 81 mg PO DAILY chew Atorvastatin [Lipitor] 40 mg PO HS #30 tab Hydrochlorothiazide [Hydrodiuril] 25 mg PO DAILY #30 tab Lisinopril [Zestril] 10 mg PO DAILY #30 tab Metoprolol Tartrate [Lopressor] 25 mg PO BID #60 tab Discontinued Metoprolol Succinate (ER) [Toprol Xl] 50 mg PO DAILY Lisinopril [Zestril] 20 mg PO BID Discharge Medication List Aspirin 81 mg PO DAILY chew 07/23/17 [Rx] Atorvastatin [Lipitor] 40 mg PO HS #30 tab 07/23/17 [Rx] Hydrochlorothiazide [Hydrodiuril] 25 mg PO DAILY #30 tab 07/23/17 [Rx] Lisinopril [Zestril] 10 mg PO DAILY #30 tab 07/23/17 [Rx] Metoprolol Tartrate [Lopressor] 25 mg PO BID #60 tab 07/23/17 [Rx] amLODIPine [Norvasc] 5 mg PO DAILY #30 tab 07/23/17 [Rx] Follow up Appointment(s)/Referral(s): Arminda Last MD [Primary Care Provider] - 1-2 days (offices closed, please call to make follow up appointment) Patient Instructions/Handouts: Chest Pain (DC), Hypertension (DC) Discharge Disposition: HOME SELF-CARE
[2017-07-23 10:35] VITALS: BP 129/65; PULSE 71; TEMP 98.6
== END 2017-07-23 10:52 | disposition home or self-care (01) | DRG 305 ==
LOC: EC 03:33 → 6SEL 05:41
PROVIDERS: ADMIT Internal Medicine; ATTEND Internal Medicine
DX: I10 Essential (primary) hypertension (principal); I24.9 Acute ischemic heart disease, unspecified; E66.01 Morbid (severe) obesity due to excess calories; I45.10 Unspecified right bundle-branch block; K21.9 Gastro-esophageal reflux disease without esophagitis; E78.1 Pure hyperglyceridemia; G47.33 Obstructive sleep apnea (adult) (pediatric); R01.1 Cardiac murmur, unspecified; F17.290 Nicotine dependence, other tobacco product, uncomplicated; Z82.3 Family history of stroke; Z81.8 Family history of other mental and behavioral disorders; Z79.82 Long term (current) use of aspirin; Z79.899 Other long term (current) drug therapy; Z80.1 Family history of malignant neoplasm of trachea, bronchus and lung; Z68.35 Body mass index [BMI] 35.0-35.9, adult
CPT/HCPCS: 36415; 71046; 80048; 80053; 80061; 81003; 82550; 82553; 83735; 83880; 84484; 85025; 85379; 85730; 93005; 93306; 94760; 96361; 96365; 96366; 96375; 96376; 99285

== ENCOUNTER 2022-04-15 15:59 | Emergency (ER) | payer BC ==
[2022-04-15 16:04] VITALS: TEMP 97.9
--- NOTE | 2022-04-15 16:45 | ED ---
General Adult HPI - General Chief complaint: Recheck/Abnormal Lab/Rx Stated complaint: Hypertension Time Seen by Provider: 04/15/22 16:12 Source: patient, RN notes reviewed Mode of arrival: ambulatory Limitations: no limitations - History of Present Illness Initial comments: 61-year-old male with past medical history of new onset hypertension a nd Gracia's palsy presents to the emergency department with a chief complaint of blood pressure check. He was seen at [facility] 04/07 for rash around eye and bells palsy and new onset HTN. He was Seen by PCP on 04/13 for ER follow up for HTN and was started on lisinoprill, metoprolol, and catapress. He took Lisinopril this morning around 11:00am and reports blood pressure being 200/110's. He reports he took additional lisinopril and catapress at around 15:00. He was concerned because his blood pressure has "not gone down." He denies headache, vision changes, vision loss, numbness, tingling, chest pain, palpitations, shortness of breath, nausea, vomiting, abdominal pain. - Related Data Previous Rx's Medication Instructions Recorded Aspirin 81 mg PO DAILY chew 07/23/17 Atorvastatin [Lipitor] 40 mg PO HS #30 tab 07/23/17 Metoprolol Tartrate [Lopressor] 25 mg PO BID #60 tab 07/23/17 amLODIPine [Norvasc] 5 mg PO DAILY #30 tab 07/23/17 hydroCHLOROthiazide [Hydrodiuril] 25 mg PO DAILY #30 tab 07/23/17 lisinopriL [Zestril] 10 mg PO DAILY #30 tab 07/23/17 lisinopriL [Zestril] 40 mg PO DAILY 30 Days #30 tablet 04/15/22 Allergies Allergy/AdvReac Type Severity Reaction Status Date / Time No Known Allergies Allergy Verified 04/15/22 16:04 Review of Systems ROS Statement: Those systems with pertinent positive or pertinent negative responses have been documented in the HPI. ROS Other: All systems not noted in ROS Statement are negative. Past Medical History Past Medical History: GERD/Reflux, Hypertension Additional Past Medical History / Comment(s): High triglycerides History of Any Multi-Drug Resistant Organisms: None Reported Past Surgical History: No Surgical Hx Reported Additional Past Anesthesia/Blood Transfusion Reaction / Comment(s): Pt has never had anesthesia Past Psychological History: No Psychological Hx Reported Smoking Status: Current every day smoker Past Alcohol Use History: Occasional Past Drug Use History: None Reported - Past Family History Father Family Medical History: CVA/TIA, Dementia Additional Family Medical History / Comment(s): Father at 87yrs from CVA. Mother Family Medical History: CVA/TIA Additional Family Medical History / Comment(s): Mother had several small strokes and dementia. She at the age of 89yrs. Sister(s) Additional Family Medical History / Comment(s): Patient has one sister that from lung cancer. She was a nonsmoker. Patient is brothers with no major medical problems. Patient has 2 children with no major medical problems. General Exam Limitations: no limitations General appearance: alert, in no apparent distress Head exam: Present: atraumatic, normocephalic, normal inspection Eye exam: Present: normal appearance, PERRL, EOMI. Absent: scleral icterus, conjunctival injection, periorbital swelling ENT exam: Present: normal exam, mucous membranes moist Neck exam: Present: normal inspection. Absent: tenderness, meningismus, lymphadenopathy Respiratory exam: Present: normal lung sounds bilaterally. Absent: respiratory distress, wheezes, rales, rhonchi, stridor Cardiovascular Exam: Present: regular rate, normal rhythm, normal heart sounds. Absent: systolic murmur, diastolic murmur, rubs, gallop, clicks GI/Abdominal exam: Present: soft, normal bowel sounds. Absent: distended, tenderness, guarding, rebound, rigid Extremities exam: Present: normal inspection, full ROM, normal capillary refill. Absent: tenderness, pedal edema, joint swelling, calf tenderness Back exam: Present: normal inspection Neurological exam: Present: alert, oriented X3, CN II-XII intact Psychiatric exam: Present: normal affect, normal mood Skin exam: Present: warm, dry, intact, normal color. Absent: rash Course Vital Signs 04/15/22 16:00 Temperature 97.9 F Pulse Rate 66 Respiratory 20 Rate Blood Pressure 205/118 O2 Sat by Pulse 97 Oximetry - Reevaluation(s) Reevaluation #1: 04/15/22 16:[address] Levy who recommends patient start 40mg Lisino pril daily, and to take catapress if blood pressure is > 140/90.. She advised to have the patient follow up with her office on monday04/18/22 Reevaluation #2: 04/15/22 16:45 RN notified promotion writer blood pressure 151/85 Medical Decision Making - Medical Decision Making Was pt. sent in by a medical professional or institution (, HARISH, MILKING MACHINE OPERATOR, urgent care, hospital, or jail...) When possible be specific @ -[No] Did you speak to anyone other than the patient for history (EMS, parent, family, police, friend...)? What history was obtained from this source @ -[No] Did you review nursing and triage notes (agree or disagree)? Why? @ -[I reviewed and agree with nursing and triage notes] Were old charts reviewed (outside hosp., previous admission, EMS record, old EKG, old radiological studies, urgent care reports/EKG's, jail records)? Report findings @ -[No old charts were reviewed] Differential Diagnosis (chest pain, altered mental status, abdominal pain women, abdominal pain men, vaginal bleeding, weakness, fever, dyspnea, syncope, headache, dizziness, GI bleed, back pain, seizure, CVA, palpatations, mental health)? @ -[not applicable] EKG interpreted by me (3pts min.). @ -[As above] X-rays interpreted by me (1pt min.). @ -[None done] CT interpreted by me (1pt min.). @ -[None done] U/S interpreted by me (1pt. min.). @ -[None done] What testing was considered but not performed or refused? (CT, X-rays, U/S, labs)? Why? @ -[None] What meds were considered but not given or refused? Why? @ -[None] Did you discuss the management of the patient with other professionals (professionals i.e. HARISH Russell, MILKING MACHINE OPERATOR, lab, RT, psych nurse, social services technician, state farm agent team member, teacher, probation officer, pillowcase maker)? Give summary @ -[No] Was smoking cessation discussed for >3mins.? @ -[No] Was critical care preformed (if so, how long)? @ -[No] Were there social determinants of health that impacted care today? How? (Homelessness, low income, unemployed, alcoholism, drug addiction, transportation, low edu. Level, literacy, decrease access to med. care, retirement, rehab)? @ -[No] Was there de-escalation of care discussed even if they declined (Discuss DNR or withdrawal of care, Hospice)? DNR status @ -[No] What co-morbidities impacted this encounter? (DM, HTN, Smoking, COPD, CAD, Cancer, CVA, ARF, Chemo, Hep., AIDS, mental health diagnosis, sleep apnea, morbid obesity)? @ -[None] Was patient admitted / discharged? Hospital course, mention meds given and route, prescriptions, significant lab abnormalities, going to OR and other pertinent info. @ -61-year-old male presents to the emergency department with hypertension. He should had a history and physical performed. Physical exam is essentially unremarkable, heart rate regular rate and rhythm, lung sounds clear to auscultation bilaterally, no neurologic deficits. Case was discussed with Dr. Levy who recommends the patient start taking 40mg Lisinopril QD, and Catapress if blood pressure is >140/90. She will follow up with him in her office on Monday04/18/22. I discussed the natural history of blood pressure and blood pressure medication with the patient patient verbalized understanding and all questions were addressed. Return precautions were discussed. Patient was discharged in stable condition. I discussed case with Dr. Denton, [facility] who agrees with plan of care. Undiagnosed new problem with uncertain prognosis? @ -[No] Drug Therapy requiring intensive monitoring for toxicity (Heparin, Nitro, Insulin, Cardizem)? @ -[No] Were any procedures done? @ -[No] Diagnosis/symptom? @ Blood pressure check -hx of HTN Acute, or Chronic, or Acute on Chronic? @ -acute Uncomplicated (without systemic symptoms) or Complicated (systemic symptoms)? @ -uncomplicated Side effects of treatment? @ -[No] Exacerbation, Progression, or Severe Exacerbation? @ -[No] Poses a threat to life or bodily function? How? (Chest pain, [place], [place], pneumonia, PE, COPD, DKA, ARF, appy, cholecystitis, CVA, Diverticulitis, Homicidal, Suicidal, threat to staff... and all critical care pts) @ -[No] Disposition Clinical Impression: HTN (hypertension), Blood pressure check Disposition: HOME SELF-CARE Condition: Stable Additional Instructions: Please return to the nearest emergency department if headache, vision changes, numbness, tingling, chest pain, shortness of breath develop. Prescriptions: lisinopriL [Zestril] 40 mg PO DAILY 30 Days #30 tablet Is patient prescribed a controlled substance at d/c from ED?: No Referrals: Nonstaff,Physician [Primary Care Provider] - 1-2 days Time of Disposition: 16:54
[2022-04-15 17:24] VITALS: BP 141/84; PULSE 65; RESP 16
== END 2022-04-15 17:15 | disposition home or self-care (01) ==
LOC: EC 15:59
DX: I10 Essential (primary) hypertension (principal); F17.200 Nicotine dependence, unspecified, uncomplicated
CPT/HCPCS: 99284